=== PATIENT | male | born 1960 | race Caucasian/White ===

== ENCOUNTER → 2017-11-10 | Outpatient (CLI) | payer OTHER ==
[~2017-11-10] MED LIST: ASPI-321 OR; CHOL200010 OR; FISH OI1 OR; MULT-506 PO; PRLSR20 PO; PRN10125 PO
--- NOTE | 2017-11-10 12:25 | DIAGNOSTIC IMAGING REPORT ---
CHEST 2 VIEWS ROUTINE CLINICAL HISTORY: WHEEZING,COUGH COMPARISON STUDY: 09/25/2009 FINDINGS: The heart is at the upper limits of normal in size. There is no focal pulmonary consolidation. There is no failure. There are no pleural effusions.[ IMPRESSION: No active disease in the chest. Electronically signed by: Jethro Gould M.D. 11/10/2017 12:24 PM Dictated Date/Time: 11/10/2017 12:23 PM
== END | disposition home or self-care (01) ==
LOC: C.RAD1850 12:09
PROVIDERS: ATTEND Student in an Organized Health Care Education/Training Program
DX: R06.2 Wheezing (principal); R05 Cough

== ENCOUNTER 2023-09-11 11:24 | Inpatient (IN) ==
[2023-09-11] MEDS ORDERED: SODIUM CHLORIDE 0.9% 1,000 ML IV STA (11:34)
[2023-09-11] MEDS ORDERED: cefTRIAXone SODIUM 2,000 MG/50 ML BAG IV STA (11:34)
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
[2023-09-11 12:26] LABS: Basophils # (auto) 0.04 K/uL (0.00-0.20); Basophils % (auto) 0.5 %; Hematocrit (blood only) 41.4 % (42.0-52.0); Hemoglobin 14.2 g/dl (14.0-18.0); Immature Granulocytes # (auto) 0.07 K/uL (0.01-0.20); Immature Granulocytes % (auto) 0.8 %; Lymphocytes # (auto) 0.76 K/uL (1.20-3.40); Mean Corpuscular Hemoglobin 31.6 pg (25.0-34.0); Mean Corpuscular Hgb Conc 34.3 g/dL (32.0-36.0); Mean Platelet Volume 11.2 fL (9.4-12.4); Monocytes # (auto) 0.72 K/uL (0.11-0.59); Monocytes % (auto) 8.5 %; Neutrophils # (auto) 6.85 K/uL (1.40-6.50); Neutrophils % (auto) 81.2 %; Platelet Count 143 K/uL (130-400); RDW Coefficient of Variation 13.2 % (11.5-14.5); RDW Standard Deviation 45.2 fL (36.4-46.3); White Blood Count 8.44 K/ul (4.8-10.8)
[2023-09-11 12:42] LABS: Albumin Level 3.5 gm/dl (3.4-5.0); BUN Creatinine Ratio 19.4 (10-20); Bilirubin,Total 1.7 mg/dl (0.2-1.0); Calcium 9.3 mg/dl (8.6-10.3); Creatinine Clr Calc Pharmacy 70.6 ml/min; Est GFR (African American) 53.7 ml/min; Est GFR (Non-African American) 46.3 ml/min; Globulin 3.4 gm/dl (2.5-4.0); Potassium 3.4 mmol/L (3.5-5.1); Total Protein 6.9 gm/dl (6.0-8.3)
[2023-09-11] MEDS ORDERED: LACTATED RINGER'S 500 ML IV ONE (12:43)
[2023-09-11] MEDS ORDERED: LACTATED RINGER'S 1,000 ML IV ONE (12:43)
[2023-09-11 12:50] LABS: Troponin I High Sensitivity 54.2 pg/ml (0-20)
[2023-09-11] MEDS ORDERED: ASPIRIN 81 MG CHEW PO STA (12:51)
[2023-09-11] MEDS ORDERED: NITROGLYCERIN SL 0.4 MG/TAB TAB SL PRN (12:56)
[2023-09-11] MEDS ORDERED: LIDOCAINE 5% 1 PATCH TD STA (13:14)
[2023-09-11] MEDS: POTASSIUM CHLORIDE / WTR 10 MEQ/100 ML PLCT IV SCH ×2 (13:27→14:33)
[2023-09-11] MEDS ORDERED: DICYCLOMINE HCL 20 MG TAB PO PRN (15:57)
[2023-09-11] MEDS ORDERED: ACETAMINOPHEN 325 MG TAB PO PRN (15:57)
--- NOTE | 2023-09-11 16:40 | Electrocardiogram Report ---
Test Reason : Blood Pressure : / mmHG Vent. Rate : 102 BPM Atrial Rate : 102 BPM P-R Int : 176 ms QRS Dur : 104 ms QT Int : 374 ms P-R-T Axes : 037 051 036 degrees QTc Int : 487 ms Sinus tachycardia with Premature supraventricular complexes Poor R wave progression, consider anterior IA vs. lead placement vs. LVH Abnormal ECG When compared with ECG of 10-SEP-2023 07:23, (unconfirmed) Premature supraventricular complexes are now Present Criteria for Inferior infarct are no longer Present Confirmed by Jim Nuñez ([id number]) on 09/11/2023 4:40:32 PM Referred By: Confirmed By:Mode Nuñez
[2023-09-11] MEDS: ACETAMINOPHEN 500 MG TAB PO PRN ×2 (17:46→21:59)
[2023-09-11] MEDS: HEPARIN SOD 5,000 UNIT/0.5 ML VIAL SQ SCH ×2 (18:50→21:59)
[2023-09-11] MEDS ORDERED: SODIUM CHLORIDE 0.65% NA SOLN 45 ML (OCEAN) PRN (18:55)
[2023-09-11] MEDS: PANTOprazole 40 MG TAB PO SCH (21:59)
[2023-09-11 22:27] LABS: Appearance Urine Clear (Clear); Bacteria Urine Automated Negative (Negative); Blood Urine 2+ (Negative); Color Urine Orange; Glucose Urine UA Negative (Negative); Ketones Urine Negative (Negative); Leukocyte Esterase Urine Trace (Negative); Nitrite Urine Negative (Negative); Protein Urine Trace (Negative); Specific Gravity Urine 1.022 (1.000-1.030); Urobilinogen Urine Negative (Negative); pH Urine 5.5 (4.5-7.5)
[2023-09-11 22:30] LABS: Bilirubin Urine 1+ (Negative)
[2023-09-12] MEDS: ACETAMINOPHEN 500 MG TAB PO PRN ×4 (04:06→20:49)
[2023-09-12] MEDS: LACTATED RINGER'S 1,000 ML IV SCH ×2 (05:26→15:38)
[2023-09-12] MEDS: HEPARIN SOD 5,000 UNIT/0.5 ML VIAL SQ SCH ×3 (06:07→20:42)
[2023-09-12] MEDS ORDERED: LIDOCAINE 5% 1 PATCH TD ONE (07:16)
[2023-09-12] MEDS: LIDOCAINE 5% 1 PATCH TD PRN (07:19)
[2023-09-12 07:43] LABS: Basophils # (auto) 0.03 K/uL (0.00-0.20); Basophils % (auto) 0.4 %; Eosinophils # (auto) 0.04 K/uL (0.00-0.50); Eosinophils % (auto) 0.6 %; Hematocrit (blood only) 37.5 % (42.0-52.0); Hemoglobin 12.9 g/dl (14.0-18.0); Immature Granulocytes # (auto) 0.03 K/uL (0.01-0.20); Immature Granulocytes % (auto) 0.4 %; Lymphocytes # (auto) 0.85 K/uL (1.20-3.40); Lymphocytes % (auto) 12.6 %; Mean Corpuscular Hemoglobin 31.5 pg (25.0-34.0); Mean Corpuscular Hgb Conc 34.4 g/dL (32.0-36.0); Mean Corpuscular Volume 91.7 fL (80.0-100.0); Mean Platelet Volume 10.9 fL (9.4-12.4); Monocytes # (auto) 0.62 K/uL (0.11-0.59); Monocytes % (auto) 9.2 %; Neutrophils # (auto) 5.15 K/uL (1.40-6.50); Neutrophils % (auto) 76.8 %; Platelet Count 130 K/uL (130-400); RDW Coefficient of Variation 13.2 % (11.5-14.5); RDW Standard Deviation 44.5 fL (36.4-46.3); Red Blood Count 4.09 M/uL (4.70-6.10); White Blood Count 6.72 K/ul (4.8-10.8)
[2023-09-12] MEDS: CHOLECALCIFEROL 5,000 UNITS 125 MCG TAB PO SCH (07:52)
[2023-09-12 07:57] LABS: BUN Creatinine Ratio 16.7 (10-20); Est GFR (African American) 58.6 ml/min; Est GFR (Non-African American) 50.6 ml/min; Potassium 4.1 mmol/L (3.5-5.1)
[2023-09-12] MEDS: cefTRIAXone SODIUM 2,000 MG in DEXTROSE 5 % MINI-B 50 ML IV SCH (11:22)
[2023-09-12] MEDS ORDERED: CHLORASEPTIC (PHENOL) 1.4% SOLN 180 ML BTL MT PRN (11:35)
[2023-09-12] MEDS ORDERED: SODIUM CHLORIDE 0.65% NA SOLN 45 ML (OCEAN) PRN (11:35)
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
[2023-09-12] MEDS: POTASSIUM CHLORIDE CRTAB 20 MEQ TABCR PO SCH ×2 (13:29→20:49)
[2023-09-12] MEDS ORDERED: COUGH DROP (SUGAR FREE) LOZ 24 LOZ/1 BOX BUCCAL PRN (20:09)
[2023-09-12] MEDS: PANTOprazole 40 MG TAB PO SCH (20:41)
[2023-09-13] MEDS: CEFEPIME 2,000 MG in SYRINGE 0 ML IV SCH ×2 (00:12→08:35)
[2023-09-13] MEDS: LACTATED RINGER'S 1,000 ML IV SCH (02:02)
[2023-09-13] MEDS: ACETAMINOPHEN 1,000 MG/100 ML VIAL IV PRN ×3 (05:24→21:41)
[2023-09-13] MEDS: HEPARIN SOD 5,000 UNIT/0.5 ML VIAL SQ SCH ×3 (05:26→21:36)
[2023-09-13 06:27] LABS: BUN Creatinine Ratio 17.3 (10-20); Calcium 8.7 mg/dl (8.6-10.3); Creatinine Clr Calc Pharmacy 83.5 ml/min; Est GFR (African American) 64.6 ml/min; Est GFR (Non-African American) 55.7 ml/min; Potassium 4.1 mmol/L (3.5-5.1)
[2023-09-13 06:41] LABS: Basophils # (auto) 0.02 K/uL (0.00-0.20); Basophils % (auto) 0.6 %; Eosinophils # (auto) 0.05 K/uL (0.00-0.50); Eosinophils % (auto) 1.5 %; Hematocrit (blood only) 37.4 % (42.0-52.0); Hemoglobin 12.7 g/dl (14.0-18.0); Immature Granulocytes # (auto) 0.03 K/uL (0.01-0.20); Immature Granulocytes % (auto) 0.9 %; Lymphocytes # (auto) 0.49 K/uL (1.20-3.40); Lymphocytes % (auto) 14.7 %; Mean Corpuscular Hemoglobin 31.3 pg (25.0-34.0); Mean Corpuscular Volume 92.1 fL (80.0-100.0); Monocytes # (auto) 0.11 K/uL (0.11-0.59); Monocytes % (auto) 3.3 %; Neutrophils # (auto) 2.63 K/uL (1.40-6.50); Platelet Count 123 K/uL (130-400); Platelet Estimate Decreased (Normal); RDW Standard Deviation 43.8 fL (36.4-46.3); Red Blood Count 4.06 M/uL (4.70-6.10); White Blood Count 3.33 K/ul (4.8-10.8)
[2023-09-13] MEDS: CHOLECALCIFEROL 5,000 UNITS 125 MCG TAB PO SCH (08:35)
[2023-09-13] MEDS: POTASSIUM CHLORIDE CRTAB 20 MEQ TABCR PO SCH (08:40)
--- NOTE | 2023-09-13 10:32 | Hospitalist Progress Note ---
Date of Service September 13, 2023 Assessment & Plan (1) Acute UTI: Plan: continue Rocephin 2 g daily - f/u bladder scan, monitor for urinary retention - Acetaminophen 500mg PRN for fever and pain - Nasal decongestion w/ saline spray PRN - Will switch to cefepime overnight due to fever, switch back to Rocephin given pansensitive E. coli. (2) Bacteremia: Plan: - e. coli bacteremia pansensitive, continue on IV Rocephin 2 g - Patient continues to have fever despite having approximately 72 hours of ceftriaxone therapy. - Discussed with pharmacy, if patient has another fever or continues to not improve then he will need to be on IV antibiotics for the duration of his therapy. - There is also concerns from the pharmacist about oral antibiotic therapy for this patient. Will consider ID consult in the a.m. if patient remains stable. (3) LISA (acute kidney injury): Plan: - Baseline creatinine approximately 1.26, urine creatinine 1.55 Prerenal azotemia versus mild LISA. Prerenal and volume contracted with poor intake - Discontinue fluids BMP daily Lisinopril/hydrochlorothiazide held - Resolved at this time (4) Left rib fracture: Plan: From mechanical fall when he slipped on a snow bank, no head injury, supportive care Patient is not splinting. Incentive spirometer ordered to help minimize risk of atelectasis/pneumonia (5) Hypertension: Plan: LisinoprilHCTZ 20-25 mg daily held for volume contraction/elevated creatinine (6) IBS (irritable bowel syndrome): Plan: Dicyclomine continued (7) Hx of Clostridium difficile infection: Plan: Noted, follow closely for development of persistent diarrhea with antibiotic use. Has had 1 episode of loose bowels after receiving additional antibiotics, no persistent diarrhea at this time. (8) Hx of gastric ulcer: Plan: - GERD, Hx of gastric ulcer - Omeprazole converted to Protonix while inpatient (9) Elevated troponin: Plan: Troponin peaked at 54.2. EKG with mild sinus tachycardia, no acute ischemic changes Suspect demand with UTI bacteremia/volume depletion Plan DVT prophylaxis: Heparin Diet: Low-sodium Disposition: Medical/tele CODE STATUS: Full code Admission and Anticipated Discharge Date Admission Date: September 11, 2023 Supervising Physician Co-Signing Physician Notes Attending attestation Pt seen and examined in concert with Dr. Buza. In agreement with the documented findings as noted in the resident documentation with any exceptions or additions as noted here. Despite intermittent flushing/fever overnight, feeling much better today. On examination, S1/S2 nl RRR no MCG. CTAB. Abd NT/ND BS+ve UTI with sepsis POA - Cx sensitive to rocephin, though still having intermittent fevers. Will monitor and, if fevers continue, will complete course w/ IV abx, else consult ID for ?PO transition recommendations. LISA - baseline 1.26 - 1.33 today, discontinue IVF Left rib fracture - encourage incentive spirometry and adjust pain control as needed Else see resident documentation as noted. Subjective Patient seen bedside this morning. Still feels a little shaky. Did have a fever overnight. Been afebrile since. States that he still feels rundown and sick. Denies any chest pain, nausea or vomiting, SOB, or abdominal pain. Review of Systems Review of Systems: All systems reviewed & are unremarkable except as noted in Subjective Physical Exam Physical Exam: Constitutional: well-appearing, no acute distress HEENT: NCAT, no conjunctival injection CV: regular rhythm, no murmur appreciated, extremities well-perfused, no LE edema Resp: CTABL, no wheezes/rales/rhonchi appreciated, no increased work of breathing GI: soft, nondistended, nontender, BS normoactive MSK: no gross deformities appreciated Skin: warm, dry, no rash appreciated Neuro: alert, oriented, no focal neurologic deficit appreciated Results & Data Results & Data Vital Signs (Past 12 Hours) Vital Signs Temp Pulse Pulse Resp BP Pulse Ox O2 Del Method 09/13/23 08:30 37.0 C 98 H 20 143/77 H 92 Room Air 09/13/23 07:35 114 H 09/13/23 06:11 37.2 C 09/13/23 04:20 36.9 C 75 20 128/71 92 Room Air 09/13/23 04:19 36.9 C 75 20 128/71 92 Room Air 09/13/23 00:52 37.1 C 88 20 135/64 92 Room Air 09/13/23 00:36 106 H 09/12/23 23:05 38.2 C H Resident Activity Tracking Resident Involvement: Resident Care Provided Care Provided: Adult Hospital Medicine (4) Left rib fracture Encounter type: initial encounter Fracture type: closed Rib fracture type: multiple ribs Qualified Code(s): S22.42XA - Multiple fractures of ribs, left side, initial encounter for closed fracture (5) Hypertension Hypertension type: primary hypertension Qualified Code(s): I10 - Essential (primary) hypertension (6) IBS (irritable bowel syndrome) Irritable bowel syndrome type: unspecified Qualified Code(s): K58.9 - Irritable bowel syndrome without diarrhea
[2023-09-13] MEDS: cefTRIAXone SODIUM 2,000 MG in DEXTROSE 5 % MINI-B 50 ML IV SCH (12:29)
[2023-09-13] MEDS: PANTOprazole 40 MG TAB PO SCH (21:35)
[2023-09-13] MEDS: LIDOCAINE 5% 1 PATCH TD PRN (22:36)
[2023-09-14] MEDS: HEPARIN SOD 5,000 UNIT/0.5 ML VIAL SQ SCH (05:47)
[2023-09-14 06:53] LABS: Basophils # (auto) 0.06 K/uL (0.00-0.20); Basophils % (auto) 0.8 %; Eosinophils # (auto) 0.26 K/uL (0.00-0.50); Eosinophils % (auto) 3.4 %; Hematocrit (blood only) 36.5 % (42.0-52.0); Hemoglobin 12.5 g/dl (14.0-18.0); Immature Granulocytes # (auto) 0.11 K/uL (0.01-0.20); Immature Granulocytes % (auto) 1.4 %; Lymphocytes # (auto) 1.17 K/uL (1.20-3.40); Lymphocytes % (auto) 15.3 %; Mean Corpuscular Hemoglobin 31.5 pg (25.0-34.0); Mean Corpuscular Hgb Conc 34.2 g/dL (32.0-36.0); Mean Corpuscular Volume 91.9 fL (80.0-100.0); Mean Platelet Volume 11.3 fL (9.4-12.4); Monocytes # (auto) 0.93 K/uL (0.11-0.59); Monocytes % (auto) 12.2 %; Neutrophils # (auto) 5.12 K/uL (1.40-6.50); Neutrophils % (auto) 66.9 %; Platelet Count 127 K/uL (130-400); RDW Coefficient of Variation 13.2 % (11.5-14.5); RDW Standard Deviation 44.2 fL (36.4-46.3); Red Blood Count 3.97 M/uL (4.70-6.10); White Blood Count 7.65 K/ul (4.8-10.8)
[2023-09-14 07:15] LABS: BUN Creatinine Ratio 18.9 (10-20); Calcium 8.9 mg/dl (8.6-10.3); Creatinine Clr Calc Pharmacy 99.8 ml/min; Est GFR (African American) 80.3 ml/min; Est GFR (Non-African American) 69.3 ml/min; Potassium 3.8 mmol/L (3.5-5.1)
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
[2023-09-14 07:29] LABS: Dohle Bodies 1+
[2023-09-14] MEDS: CHOLECALCIFEROL 5,000 UNITS 125 MCG TAB PO SCH (08:38)
[2023-09-14] MEDS ORDERED: PNEUMOCOCCAL VACCINE (PCV20) 20-VAL CONJ-DIP CRM/PF 0.5 ML SYR IM ONE (10:00)
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
[2023-09-14] MEDS: cefTRIAXone SODIUM 2,000 MG in DEXTROSE 5 % MINI-B 50 ML IV SCH (11:19)
== END 2023-09-14 13:07 | disposition home or self-care (01) | DRG 872 ==
LOC: EDINP 11:24 → ED 11:24 → SUATTDRO 12:44 → 2N 15:58